=== PATIENT | male | born 1960 | race Caucasian/White ===

== ENCOUNTER 2016-11-09 07:10 | Day surgery (SDC) | payer OTHER ==
[2016-11-06 15:57] VITALS: BMI 25.7
[2016-11-09] MEDS ORDERED: BUPIVACAINE HCL/EPINEPHRINE/PF 30 ML VIAL IJ ONE (08:11)
[2016-11-09] MEDS ORDERED: ONDANSETRON 4 MG/2 ML VIAL ONE (08:50)
[2016-11-09] MEDS ORDERED: PROPOFOL 20 ML ONE (08:50)
[2016-11-09] MEDS ORDERED: DEXAMETHASONE SOD PHOSPHATE 4 MG/1 ML VIAL ONE (08:50)
[2016-11-09] MEDS ORDERED: MIDAZOLAM HCL 2 MG/2 ML SINGLE DOSE VIAL ONE ×2 (08:51→08:52)
--- NOTE | 2016-11-09 08:53 | HP ---
Admitting History and Physical - Admission Chief Complaint: Right distal biceps tear History of Present Illness: 56 yo M reports lifting furniture 3 weeks ago and tearing his right distal biceps tendon. Patient presents on 11/09/16 for planned right distal bicep repair with Dr. Joya. History Source: Patient Limitations to Obtaining History: No Limitations - Past Medical History BULK STATION AGENT: No: Alzheimer's, CVA, Dementia, Migraine, Multiple Sclerosis, Peripheral Neuropathy, Parkinson's, Seizure, Syncope, TIA, Vertigo, Other Cardiovascular: No: AFIB, Aneurysm, Aortic Insufficiency, Aortic Stenosis, CAD, CHF, Deep Vein Thrombosis, HTN, Hyperlipdemia, PR, Mitral Insufficiency, Mitral Stenosis, Murmur, Pulmonary Hypertension, Other Pulmonary: No: Asthma, Bronchitis, Cancer, COPD, O2 Dependent, Pneumonia, Previously Intubated, Pulmonary Embolus, Pulmonary Fibrosis, Sleep Apnea, Other Gastrointestinal: No: Ascites, Cancer, Constipation, Crohn's Disease, Diverticulitis, Diverticulosis, Esophageal Varices, Gastritis, GERD, GI Bleed, Hemorrhoids, Hiatal Hernia, Inflamatory Bowel Disease, Irritable Bowel Disease, Pancreatitis, Peptic Ulcer Disease, Ulcerative Colitis, Other Hepatobiliary: No: Cirrhosis, Cholelithiasis, Cholecystitis, Choledocholithiasis , Hepatitis A, Hepatitis B, Hepatitis C, Other Heme/Onc: No: Anemia, B12 Deficiency, Bleeding Disorder, Cancer, Current Chemotherapy, Current Radiation Therapy, Hemochromatosis, Hypercoaguable State, Myeloproliferative Synd, Sickle Cell Disease, Sickle Cell Trait, Thrombocytopenia, Other Infectious Disease: No: AIDS, C-Diff, Herpes Zoster, HIV, MRSA, STD's, Tuberculosis, VREF, Other Musculoskeletal: Yes: Other (Right distal bicep tear) Endocrine: No: Jacques's Disease, [place]'s Disease, Diabetes Insipidus, Diabetes Mellitus (Right rotator cuff repair, right ankle surgery), Hyperparathyroidism, Hyperthyroidism, Hypothyroidism, Osteopenia, SIADH, Other - Smoking History Smoking history: Never smoked - Alcohol/Substance Use Hx Alcohol Use: No - Social History ADL: Independent Home Medications - Allergies Allergies/Adverse Reactions: Allergies Allergy/AdvReac Type Severity Reaction Status Date / Time cephalexin monohydrate Allergy Rash Verified 11/09/16 07:59 [From Keflex] - Home Medications Home Medications: Ambulatory Orders NK [No Known Home Medication] 11/06/16 Review of Systems - Review of Systems Constitutional: reports: No Symptoms Eyes: reports: No Symptoms HENT: reports: No Symptoms Neck: reports: No Symptoms Cardiovascular: reports: No Symptoms Respiratory: reports: No Symptoms Gastrointestinal: reports: No Symptoms Genitourinary: reports: No Symptoms Musculoskeletal: reports: No Symptoms (Right arm swelling and pain at time of injury) Neurological: reports: No Symptoms Hematology/Lymphatic: reports: No Symptoms Physical Examination Vital Signs: Vital Signs Temperature 98.1 F 11/09/16 07:58 Pulse Rate 66 11/09/16 07:58 Respiratory Rate 17 11/09/16 07:58 Blood Pressure 136/81 11/09/16 07:58 O2 Sat by Pulse Oximetry (%) 99 11/09/16 07:58 Constitutional: Yes: Well Nourished, No Distress, Calm Eyes: Yes: WNL HENT: Yes: WNL Neck: Yes: WNL Cardiovascular: Yes: WNL Respiratory: Yes: WNL Gastrointestinal: Yes: WNL Musculoskeletal: Yes: Other (Right arm deformity, bulge) Integumentary: Yes: WNL Neurological: Yes: WNL, Alert, Oriented Problem List - Problems (1) Biceps rupture, distal Assessment/Plan: Patient presents for planned right distal bicep repair with Dr. Joya on 11/09/16. Code(s): S46.219A - STRAIN OF MUSC/FASC/TEND PRT BICEPS, UNSP ARM, INIT Assessment/Plan Patient presents for planned right distal bicep repair with Dr. Joya on 11/09/16.
[2016-11-09] MEDS ORDERED: CLINDAMYCIN PHOSPHATE 600 MG/4 ML VIAL ONE (09:04)
[2016-11-09] MEDS ORDERED: DESFLURANE GAS 240 ML BOTTLE IH ONE (09:39)
--- NOTE | 2016-11-09 10:01 | OP ---
Operative Note - Note: Operative Date: 11/09/16 Pre-Operative Diagnosis: Right distal biceps tear Operation: right distal biceps repair Post-Operative Diagnosis: Same as Pre-op Surgeon: Fredi Joya Anesthesia: General Operative Report Dictated: Yes
--- NOTE | 2016-11-09 10:02 | DS ---
Physical Examination Vital Signs: Vital Signs Temperature 98.1 F 11/09/16 07:58 Pulse Rate 66 11/09/16 07:58 Respiratory Rate 17 11/09/16 07:58 Blood Pressure 136/81 11/09/16 07:58 O2 Sat by Pulse Oximetry (%) 99 11/09/16 07:58 Discharge Summary Reason For Visit: RIGHT DISTAL BICEPS TEAR Current Active Problems Biceps rupture, distal (Acute) Condition: Good - Instructions Diet, Activity, Other Instructions: Do not use the right arm Do not take the sling off Elevate the arm on pillows on your chest. Call if you have a problem you are concerned. [phone] Disposition: HOME - Home Medications Comprehensive Discharge Medication List: Ambulatory Orders NK [No Known Home Medication] 11/06/16
[2016-11-09] MEDS ORDERED: LACTATED RINGERS SOLUTION 1,000 ML IV SCH (10:15)
[2016-11-09] MEDS ORDERED: KETOROLAC TROMETHAMINE 30 MG/1 ML VIAL IVPUSH ONE (10:27)
--- NOTE | 2016-11-09 10:27 | SURG ---
Surgery Billiard Table Repairer Note Billiard Table Repairer: Joleen Bonilla PA-C Date of Service: 11/09/16 Diagnosis: Right distal biceps tear Procedure: Right distal biceps repair I was present for the entirety of the operative procedure. For further detail, please refer to operative report. Visit type - Case Type Case Type: Scheduled Admission - New patient This patient is new to me today: Yes Date on this admission: 11/09/16
[2016-11-09] MEDS ORDERED: ONDANSETRON 4 MG/2 ML VIAL IVPUSH PRN (10:46)
[2016-11-09] MEDS ORDERED: oxyCODONE HCL 5 MG TABLET PO PRN (10:46)
[2016-11-09] MEDS ORDERED: PROMETHAZINE HCL 25 MG/1 ML VIAL IVPUSH PRN (10:47)
[2016-11-09] MEDS ORDERED: oxyCODONE HCL 5 MG TABLET ONE (11:56)
[2016-11-09 12:02] VITALS: TEMP 97.8
[2016-11-09 12:38] VITALS: BP 136/84; PULSE 61
== END 2016-11-09 13:00 | disposition home or self-care (01) ==
LOC: FASU 07:10
PROVIDERS: ATTEND Orthopaedic Surgery
PROC: 0LQ40ZZ Repair Left Upper Arm Tendon, Open Approach (ICD-10-PCS; principal; 2016-11-09 09:17)
DX: S46.211A Strain of muscle, fascia and tendon of other parts of biceps, right arm, initial encounter (principal); X58.XXXA Exposure to other specified factors, initial encounter; Y93.9 Activity, unspecified; Y99.9 Unspecified external cause status
CPT/HCPCS: 94760